=== PATIENT | female | born 1980 | race Caucasian/White ===

== ENCOUNTER → 2019-08-27 09:52 | Outpatient (BNVA) | payer BC, SELFPAY | PROVIDERS: Family Provider Family Medicine; PCP Family Medicine; Visit Provider Obstetrics & Gynecology | DX: E03.9 Hypothyroidism, unspecified (principal) | CPT/HCPCS: 84443 ==

== ENCOUNTER → 2019-10-22 09:44 | Outpatient (BNVA) | payer BC, SELFPAY | PROVIDERS: Family Provider Family Medicine; PCP Family Medicine; Visit Provider Obstetrics & Gynecology | DX: E03.9 Hypothyroidism, unspecified (principal) | CPT/HCPCS: 84443 ==

== ENCOUNTER → 2019-12-17 15:58 | Outpatient (BNVA) | payer BC, SELFPAY | PROVIDERS: Family Provider Family Medicine; PCP Family Medicine; Visit Provider Obstetrics & Gynecology | DX: E03.9 Hypothyroidism, unspecified (principal) | CPT/HCPCS: 84443 ==

== ENCOUNTER → 2020-02-07 12:38 | Outpatient (BNVA) | payer BC, SELFPAY | PROVIDERS: Family Provider Family Medicine; PCP Family Medicine; Visit Provider Obstetrics & Gynecology | DX: E03.9 Hypothyroidism, unspecified (principal) | CPT/HCPCS: 84443 ==

== ENCOUNTER → 2020-06-04 09:03 | Outpatient (BNVA) | payer BC, SELFPAY | PROVIDERS: Family Provider Family Medicine; PCP Family Medicine; Visit Provider Obstetrics & Gynecology | DX: Z32.01 Encounter for pregnancy test, result positive (principal) | CPT/HCPCS: 81025 ==

== ENCOUNTER → 2020-07-14 10:34 | Outpatient (BNVA) | payer BC, SELFPAY | PROVIDERS: Family Provider Family Medicine; PCP Family Medicine; Visit Provider Obstetrics & Gynecology | DX: O09.521 Supervision of elderly multigravida, first trimester (principal); E03.9 Hypothyroidism, unspecified; O09.899 Supervision of other high risk pregnancies, unspecified trimester; O21.9 Vomiting of pregnancy, unspecified; O34.219 Maternal care for unspecified type scar from previous cesarean delivery | CPT/HCPCS: 80307; 82950; 84315; 84443; 85027; 86592; 86762; 86803; 86850; 86900; 87086; 87340 ==

== ENCOUNTER → 2020-09-15 08:41 | Outpatient (BNVA) | payer BC, SELFPAY | PROVIDERS: Family Provider Family Medicine; PCP Family Medicine; Visit Provider Obstetrics & Gynecology | DX: Z04.89 Encounter for examination and observation for other specified reasons (principal); O09.521 Supervision of elderly multigravida, first trimester; E03.9 Hypothyroidism, unspecified; O34.219 Maternal care for unspecified type scar from previous cesarean delivery; O09.899 Supervision of other high risk pregnancies, unspecified trimester | CPT/HCPCS: 84315; 84443 ==

== ENCOUNTER → 2020-11-09 12:24 | Outpatient (BNVA) | payer BC, SELFPAY | PROVIDERS: Family Provider Family Medicine; PCP Family Medicine; Visit Provider Obstetrics & Gynecology | DX: O09.899 Supervision of other high risk pregnancies, unspecified trimester (principal); E03.9 Hypothyroidism, unspecified; O09.521 Supervision of elderly multigravida, first trimester | CPT/HCPCS: 82950; 84315; 84439; 84443; 84481; 85027 ==

== ENCOUNTER → 2020-12-01 08:02 | Outpatient (BNVA) | payer BC, SELFPAY | PROVIDERS: Family Provider Family Medicine; PCP Family Medicine; Visit Provider Obstetrics & Gynecology | DX: O09.899 Supervision of other high risk pregnancies, unspecified trimester (principal) | CPT/HCPCS: 82951; 82952 ==

== ENCOUNTER → 2020-12-08 09:58 | Outpatient (BNVA) | payer BC, SELFPAY | PROVIDERS: Family Provider Family Medicine; PCP Family Medicine; Visit Provider Obstetrics & Gynecology | DX: O09.899 Supervision of other high risk pregnancies, unspecified trimester (principal); E03.9 Hypothyroidism, unspecified; O09.521 Supervision of elderly multigravida, first trimester; O34.219 Maternal care for unspecified type scar from previous cesarean delivery | CPT/HCPCS: 84315; 84443 ==

== ENCOUNTER → 2021-01-04 08:11 | Outpatient (BNVA) | payer BC, SELFPAY | PROVIDERS: Family Provider Family Medicine; PCP Family Medicine; Visit Provider Obstetrics & Gynecology | DX: O09.899 Supervision of other high risk pregnancies, unspecified trimester (principal); Z3A.00 Weeks of gestation of pregnancy not specified | CPT/HCPCS: 84315; 84443; 87081 ==

== ENCOUNTER → 2021-01-21 10:08 | Outpatient (BNVA) | payer BC, SELFPAY | PROVIDERS: Family Provider Family Medicine; PCP Family Medicine; Visit Provider Obstetrics & Gynecology | DX: O09.899 Supervision of other high risk pregnancies, unspecified trimester (principal); Z20.822 Contact with and (suspected) exposure to COVID-19 | CPT/HCPCS: 87635 ==

== ENCOUNTER 2021-01-27 05:57 | Inpatient (IN) | payer BC, SELFPAY ==
[2021-01-27] VITALS (30 sets, daily range): BP systolic 107–162; BP diastolic 59–97; PULSE 60–122; RESP 14–18; TEMP 36.4–36.9; O2SAT 97–99; BMI 36.3
[2021-01-27 07:11] LABS: Basophils % 0.2 %; Eosinophils % 0.5 %; Hematocrit 38.9 % (37.0-47.0); Hemoglobin 13.3 g/dL (11.5-15.3); Lymphocytes # 1.1 10^3/uL (0.8-4.8); Lymphocytes % 12.5 %; Mean Corpuscular HGB Conc 34.2 g/dL (30.0-36.0); Mean Corpuscular Hemoglobin 30.2 pg (28.0-34.0); Mean Corpuscular Volume 88.4 fL (81-99); Mean Platelet Volume 11.5 fL (7.4-10.4); Monocytes # 0.6 10^3/uL (0.2-0.9); Monocytes % 7.3 %; Neutrophils # 6.83 10^3/uL (1.8-7.7); Nucleated Red Blood Cells % 0 %; Platelet Count 253 10^3/cmm (130-400); Red Cell Distribution Width 14.2 % (12.1-15.1); White Blood Count 8.6 10^3/uL (4.0-10.0)
[2021-01-27] MEDS: oxytocin 30 UNIT/500 ML BAG IV (07:18)
[2021-01-27] MEDS: ampicillin 2,000 MG in sodium chloride 0.9% (plus) 50 ML 100 MG IV (07:18)
[2021-01-27] MEDS: dextrose 5%-lactated ringers 1,000 ML 125 ML IV (07:18)
--- NOTE | 2021-01-27 07:28 | PM.OPHPUD ---
Labor & Delivery H&P Update Date of Procedure: January 27, 2021 Date H&P Performed: 01/26/21 H&P update information: I have reviewed H&P completed within last 30 days, I have examined patient prior to procedure, No changes to prior documentation and H&P is in [facility] EMR on date indicated Admission Diagnosis: ---trial of labor
[2021-01-27] MEDS: saline nasal spray 44mL Btl 1 SPRAY NASAL (10:28)
[2021-01-27] MEDS: cetirizine 10 mg Tablet PO (10:28)
[2021-01-27] MEDS: ampicillin 1,000 MG in sodium chloride 0.9% (plus) 50 ML 100 MG IV (10:41)
[2021-01-27] MEDS: lidocaine 2% INJ 20 mL INJECTION (11:39)
[2021-01-27] MEDS: miSOPROStol 200 mcg Tablet 800 MCG PR (11:47)
--- NOTE | 2021-01-27 12:30 | P.PCNOB_ITS ---
Delivery Note: Date of delivery: January 27, 2021 - PRE-DELIVERY DIAGNOSIS: 41-year-old 9 para 6-1-1-7 at 39 weeks and 4 days Previous delivery x1-desires trial of labor Induction of labor GBS positive Advanced maternal age Hypothyroidism on medication POST-DELIVERY DIAGNOSIS: Vaginal after on 01/27/2021 Hypothyroidism on medication PROCEDURE: on 01/27/2021 ANESTHESIA: Local anesthesia with 2% lidocaine DELIVERING PHYSICIAN: Tessa Dinh FACOG PRE-DELIVERY COURSE: Ms. Mcdonald is a 41-year-old 9 para 6-1-1-7 at 39 weeks and 4 days who presented to labor and delivery for scheduled induction of labor. Her history significant for a previous delivery x1 and she was interested in a trial of labor and had had 1 previous successful trial of labor. On presentation to labor and delivery she was noted to be 4 cm 60% and -3 station, cephalic with a category 1 tracing and no contractions on the monitor. Induction was started with Pitocin at 7:30 AM on 01/27/2021 titrated to a maximum of 7 mIU and with this she started to have contractions every 2 to 5 minutes. tracing was category 1. She was doing well from a pain standpoint and had very minimal discomfort. Artificial rupture of membranes was performed at 10:20 AM with clear blood-tinged fluid. Patient started to get significantly uncomfortable after this and made rapid cervical change and was fully dilated at 11:23 AM on 01/27/2021. The last 20 minutes prior to delivery she developed variables with every contraction but other than that tracing was category 1 prior to that. She was set up in lithotomy position ready to push. DELIVERY NOTE: She was set up in lithotomy position and was pushing effectively. She was noted to be +3 station and continued pushing well. The head delivered in IVORY position, no nuchal cord was present. The shoulders and rest of the body followed with her next push. The baby's mouth and nose were suctioned and the baby was placed on the mother's belly. Once cord pulsations stopped the cord was clamped and cut. The placenta delivered spontaneously intact with membranes and was discarded. The fundus was noted to be firm and well contracted. Area of scar was palpated and noted to be intact. Lower uterine segment was boggy and Cytotec 600 mcg was placed per rectum. The vagina and cervix were inspected and no cervical or sulcal lacerations were noted. She had a small second-degree perineal tear which was repaired with 3-0 Vicryl in a continuous interlocking fashion. Good hemostasis and reapproximation was obtained. Baby boy, Jose Plummer born at 11:29 AM on 01/27/2021 with 9/10, weighing 8 pounds 3 ounces, 20-1/2 inches long. Placenta was delivered spontaneously intact with membranes at 11:35 AM. Cotyledons were intact , eccentrically inserted umbilical cord with 3 vessels noted. Estimated blood loss 200 mL. Complications-none, both baby and mother were left to recover in a stable condition. This documentation was created by [employer] regulatory specialist software (known for inherent regulatory specialist error). Every effort was made to assure accuracy of regulatory specialist. Any obvious errors or omissions should be clarified with the author of the document. Coding Level of Care Code Acute Helper Marble Finisher for g Fwd History History History 9 Term 7 Miscarriages/Ectopic 1 1 Living Children 8 Other History: - X 5---> second was delivery at 36 weeks--has had all term delivery since then. -C/S x 1 done for breech presentation; -SAB x 1-no D&C done, - X 2 1--->02/25/1998, female (Elva) weighing 6# 4ozs, 40 weeks gestation no medications, 6 hour labor delivered vaginally by Dr. Mccarthy at [facility] in [place], [place]. 2--->07/15/99, male (Jesus), 5lbs 12ozs 36 weeks gestation, no meds, 4 hour labor, delivered vaginally by Dr. Mccarthy at [facility], [place]. 3-->12/19/2000, female(Betty), 8lbs 3ozs, 40 week gestation, no medications, induction with 45 minute labor delivered vaginally by Dr. Mccarthy at [facility], [place]. 4--->10/11/2002, female (Shanell )weighing 7lbs 0ozs 40 weeks gestation no medications 2-3 hour labor delivered vaginally by Dr. Schumacher at [facility] . 5--->05/24/2013, male (Best) weighing 6# 7.5ozs 39 weeks gestation, induced with 10 hour labor and successful ECV for breech, delivered vaginally by Dr. Antoine at [facility]. 6--->12/23/15 - Male (Alfonso) - 8#,1oz - term PRIMARY LOW TRANSVERSE SECTION for breech presentation, previously failed external cephalic version - spinal anesthesia - [facility], Dr. James. 7--->02/22/2018, Miscarriage at 5-6 weeks gestation. No D&C needed. 8---> 05/25/2019, male (Brent) weighing 6 lbs. 7 oz., vaginal after at 40 weeks, delivered by Dr. Dinh at [facility], first-degree vaginal tear. No complications 9--> 01/27/2021, male (Jose Plummer) weighing 8 pounds 3 ounces, vaginal after at 39 weeks, induction of labor-for an induction, delivered by Dr. Mcdonald at [facility], second-degree perineal tear, no complications.
--- NOTE | 2021-01-27 13:11 | PC.NURSE ---
pt up to bathroom without difficulty, large void. duglas care performed by pt. gown/pad changed. pt ambulated around room and sitting on couch at this time
[2021-01-27] MEDS: lanolin oint 7 gm 1 APPLIC TOPICAL (13:59)
[2021-01-27] MEDS: ibuprofen 800 mg tablet PO ×2 (13:59→21:39)
[2021-01-27] MEDS: benzocaine-menthol 78 gm Canister 1 SPRAY TOPICAL (14:00)
[2021-01-27] MEDS: HYDROcodone-acetaminophen 5-325 mg Tablet PO ×2 (15:44→22:59)
[2021-01-27] MEDS: docusate sodium 100 mg Capsule PO (18:22)
[2021-01-28 01:16] LABS: Hematocrit 35.1 % (37.0-47.0); Hemoglobin 11.9 g/dL (11.5-15.3); Mean Corpuscular HGB Conc 33.9 g/dL (30.0-36.0); Mean Corpuscular Hemoglobin 30.1 pg (28.0-34.0); Mean Corpuscular Volume 88.9 fL (81-99); Mean Platelet Volume 11.2 fL (7.4-10.4); Platelet Count 241 10^3/cmm (130-400); Red Blood Count 3.95 10^6/uL (4.1-5.3); Red Cell Distribution Width 14.2 % (12.1-15.1); White Blood Count 11.9 10^3/uL (4.0-10.0)
[2021-01-28 01:30] VITALS: BP 121/82; PULSE 66; TEMP 36.5; O2SAT 97
[2021-01-28] MEDS: HYDROcodone-acetaminophen 5-325 mg Tablet PO ×2 (03:11→13:26)
[2021-01-28 05:47] VITALS: BP 149/77; PULSE 64; TEMP 36.3; O2SAT 98
--- NOTE | 2021-01-28 07:53 | PM.DCS ---
Discharge Providers Date of Admission: 01/27/21 05:57 Date of Discharge: January 28, 2021 Attending Provider at Admission: Tessa Vasquez MD Attending Provider at Discharge: Tessa Vasquez MD Primary Care Provider: PRE-DELIVERY DIAGNOSIS: 41-year-old 9 para 6-1-1-7 at 39 weeks and 4 days Previous delivery x1-desires trial of labor Induction of labor GBS positive Advanced maternal age Hypothyroidism on medication POST-DELIVERY DIAGNOSIS: Vaginal after on 01/27/2021 Hypothyroidism on medication PROCEDURE: on 01/27/2021 ANESTHESIA: Local anesthesia with 2% lidocaine DELIVERING PHYSICIAN: Tessa Dinh FACOG PRE-DELIVERY COURSE: Ms. Mcdonald is a 41-year-old 9 para 6-1-1-7 at 39 weeks and 4 days who presented to labor and delivery for scheduled induction of labor. Her history significant for a previous delivery x1 and she was interested in a trial of labor and had had 1 previous successful trial of labor. On presentation to labor and delivery she was noted to be 4 cm 60% and -3 station, cephalic with a category 1 tracing and no contractions on the monitor. Induction was started with Pitocin at 7:30 AM on 01/27/2021 titrated to a maximum of 7 mIU and with this she started to have contractions every 2 to 5 minutes. tracing was category 1. She was doing well from a pain standpoint and had very minimal discomfort. Artificial rupture of membranes was performed at 10:20 AM with clear blood-tinged fluid. Patient started to get significantly uncomfortable after this and made rapid cervical change and was fully dilated at 11:23 AM on 01/27/2021. The last 20 minutes prior to delivery she developed variables with every contraction but other than that tracing was category 1 prior to that. She was set up in lithotomy position ready to push. DELIVERY NOTE: She was set up in lithotomy position and was pushing effectively. She was noted to be +3 station and continued pushing well. The head delivered in IVORY position, no nuchal cord was present. The shoulders and rest of the body followed with her next push. The baby's mouth and nose were suctioned and the baby was placed on the mother's belly. Once cord pulsations stopped the cord was clamped and cut. The placenta delivered spontaneously intact with membranes and was discarded. The fundus was noted to be firm and well contracted. Area of scar was palpated and noted to be intact. Lower uterine segment was boggy and Cytotec 600 mcg was placed per rectum. The vagina and cervix were inspected and no cervical or sulcal lacerations were noted. She had a small second-degree perineal tear which was repaired with 3-0 Vicryl in a continuous interlocking fashion. Good hemostasis and reapproximation was obtained. Baby boy, Jose Plummer born at 11:29 AM on 01/27/2021 with 9/10, weighing 8 pounds 3 ounces, 20-1/2 inches long. Placenta was delivered spontaneously intact with membranes at 11:35 AM. Cotyledons were intact , eccentrically inserted umbilical cord with 3 vessels noted. Estimated blood loss 200 mL. Complications-none, both baby and mother were left to recover in a stable condition. HOSPITAL COURSE: She underwent an uncomplicated on 01/27/2021. She did well on day 0 and was ambulating well, tolerating regular diet, voiding freely, passing flatus. She was breast-feeding without difficulty and bonding well with her son. She desired him to have a circumcision and this was performed on day of life 1 without any difficulty. Pain was well-controlled with by mouth pain medication. She denied nausea, vomiting, fever, chills, shortness of breath, leg pain. She had moderate vaginal bleeding. On day # 1 she continued to do well with stable vital signs and stable hemoglobin at 11.9. She was discharged home on day 1 in a stable condition, as she desired early discharge. Warning signs for endometritis, mastitis, DVT/PE were reviewed with her. Post delivery activity restrictions were also reviewed with her at all her questions were answered to her satisfaction. Is unsure about what she wants to use for contraception and we will reassess this at her 6-week visit. EXAM AT DISCHARGE: Gen.: No acute distress Heart: S1-S2 heard, regular rate and rhythm Lungs: Clear to auscultation bilaterally Abdomen: Soft, fundus firm below umbilicus, Legs: No calf tenderness, +1 bilateral pitting pedal edema. CONDITION AT DISCHARGE: Stable This documentation was created by [employer] felt washing machine tender software (known for inherent felt washing machine tender error). Every effort was made to assure accuracy of felt washing machine tender. Any obvious errors or omissions should be clarified with the author of the document. Reason for Visit Reason for Visit: IOL Discharge Data Data Completed and Pending: Labs from last 24 hours 01/28/21 01:07 WBC 11.9 H RBC 3.95 L Hgb 11.9 Hct 35.1 L MCV 88.9 MCH 30.1 MCHC 33.9 RDW 14.2 Plt Count 241 MPV 11.2 H Vitals: Last Vital Signs Temp 97.4 F L 01/28/21 05:47 Pulse 64 01/28/21 05:47 Resp 16 01/27/21 21:30 BP 149/77 01/28/21 05:47 Pulse Ox 98 01/28/21 05:47 Discharge Plan Discharge Prescriptions: New hydrocodone-acetaminophen 5-325 mg tablet 1 tab PO Q6H Qty: 10 RF: 0 ibuprofen 800 mg tablet 800 mg PO Q8H Qty: 30 RF: 0 docusate sodium 100 mg Capsule 100 mg PO BID PRN (Reason: constipation) Qty: 30 RF: 0 Continued prenat.vits,santiago,[id number] Tablet 1 tab PO DAILY RF: 0 levothyroxine 100 mcg capsule 100 mcg PO DAILY Qty: 90 RF: 0 Discharge Orders: Discharge Order (Routine); Ordered 01/28/21 Ordered By: Tessa Vasquez Referrals: Tessa Vasquez MD [Physician] - Patient Instructions: Opioid Safety Activity Restrictions/Additional Instructions: Pelvic rest for 6 weeks, no heavy lifting for 6 weeks 6-week visit with Dr. Dinh Discharge Attestations Time Spent in Discharge Care*: greater than 30 min Quality Metrics Clinical Quality Measures During this hospital stay, did patient experience: None Coding Level of Care Code Acute Chg FW DC note
[2021-01-28] MEDS: prenatal vitamin Capsule 1 CAP PO (09:53)
[2021-01-28] MEDS: docusate sodium 100 mg Capsule PO (09:53)
[2021-01-28] MEDS: ibuprofen 800 mg tablet PO (09:53)
[2021-01-28 13:15] VITALS: BP 129/77; PULSE 63; RESP 16; TEMP 36.9
== END 2021-01-28 13:30 | disposition home or self-care (01) | DRG 807 ==
LOC: OPOB 05:57 → OBGYN 09:14
PROVIDERS: Admitting Provider Obstetrics & Gynecology; Family Provider Family Medicine; PCP Family Medicine; Visit Provider Obstetrics & Gynecology
DX: O34.211 Maternal care for low transverse scar from previous cesarean delivery (principal); Z37.0 Single live birth; Z3A.39 39 weeks gestation of pregnancy; O99.284 Endocrine, nutritional and metabolic diseases complicating childbirth; E03.9 Hypothyroidism, unspecified; O99.824 Streptococcus B carrier state complicating childbirth; O70.1 Second degree perineal laceration during delivery; Z87.891 Personal history of nicotine dependence
CPT/HCPCS: 36415; 59025; 59409; 59618; 85025; 85027; 86850; 86900; 98960; J0290

== ENCOUNTER → 2021-03-08 10:55 | Outpatient (BNVA) | payer BC, SELFPAY | PROVIDERS: Family Provider Family Medicine; PCP Nurse Practitioner; Visit Provider Obstetrics & Gynecology | DX: E03.9 Hypothyroidism, unspecified (principal) | CPT/HCPCS: 84443 ==

== ENCOUNTER → 2021-06-28 10:21 | Outpatient (BNVA) | payer BC, SELFPAY | PROVIDERS: Family Provider Family Medicine; PCP Nurse Practitioner; Visit Provider Obstetrics & Gynecology | DX: E03.9 Hypothyroidism, unspecified (principal) | CPT/HCPCS: 84439; 84443; 84481 ==

== ENCOUNTER → 2021-08-30 09:28 | Outpatient (BNVA) | payer BC, OTHER, SELFPAY | PROVIDERS: Family Provider Family Medicine; PCP Nurse Practitioner; Visit Provider Obstetrics & Gynecology | DX: E03.9 Hypothyroidism, unspecified (principal) | CPT/HCPCS: 84443 ==

== ENCOUNTER → 2021-11-15 10:53 | Outpatient (BNVA) | payer BC, OTHER, SELFPAY | PROVIDERS: Family Provider Family Medicine; PCP Nurse Practitioner; Visit Provider Obstetrics & Gynecology | DX: Z12.4 Encounter for screening for malignant neoplasm of cervix (principal); E03.9 Hypothyroidism, unspecified; Z00.00 Encounter for general adult medical examination without abnormal findings; N91.2 Amenorrhea, unspecified | CPT/HCPCS: 80061; 83001; 83036; 84443; 87624 ==

== ENCOUNTER → 2022-01-11 11:11 | Outpatient (BNVA) | payer OTHER, SELFPAY | PROVIDERS: Family Provider Family Medicine; PCP Nurse Practitioner; Visit Provider Obstetrics & Gynecology | DX: E03.9 Hypothyroidism, unspecified (principal) | CPT/HCPCS: 84443 ==